=== PATIENT | male | born 1975 | race Caucasian/White ===

== ENCOUNTER 2018-12-29 14:00 | Emergency (ER) | payer SELFPAY ==
--- NOTE | 2018-12-29 14:17 | ER Document Report ---
ED Medical Screen (RME) - General Chief Complaint: Difficulty Swallowing Stated Complaint: FORIGN BODY IN THROAT Time Seen by Provider: 12/29/18 14:09 Mode of Arrival: Ambulatory TRAVEL OUTSIDE OF THE [place] IN LAST 30 DAYS: No - HPI Notes: 12/29/18 14:13 Patient is a 43 yr old male that presents to the emergency department for chief complaint of difficulty breathing x 1 hour after he ate chicken, feels like the chicken is stuck in his throat. Patient states he had a similar issue in [place] last year, he was eating steak, which became stuck in his throat, had to have dilation of esophagus to have steak removed. no hx of esophageal stricture since that time. patient reports is difficult to manage his secretions. He is speaking clearly, in full sentences. Has not tried any [id number] medications. ROS: Other than noted above, the 12 point review of systems was reviewed with the patient and were negative, all pertinent findings are included in the HPI. PHYSICAL EXAMINATION: Vital signs reviewed. GENERAL: Well-appearing, well-nourished and in no mild distress HEAD: Atraumatic, normocephalic. EYES: Pupils equal round extraocular movements intact, conjunctiva are normal. ENT: Nares patent NECK: Normal range of motion CV: tachycardia LUNGS: No respiratory distress NEUROLOGICAL: Normal speech PSYCH: anxious Patient seen and examined for rapid initial assessment. Vital signs reviewed. A comprehensive ED assessment and evaluation of the patient, analysis of test results and completion of the medical decision making process will be conducted by additional ED providers. *Note is created using voice recognition software and may contain spelling, syntax or grammatical errors. Past Medical History - Social History Chew tobacco use (# tins/day): No Frequency of alcohol use: None Drug Abuse: None Renal/ Medical History: Denies: Hx Peritoneal Dialysis Physical Exam - Vital signs Vitals: Temp Pulse Resp BP Pulse Ox 98.1 F 129 H 26 H 184/109 H 99 12/29/18 14:12/29/18 14:12/29/18 14:12/29/18 14:12/29/18 14:05 Course - Vital Signs Vital signs: Temp Pulse Resp BP Pulse Ox 98.1 F 129 H 26 H 184/109 H 99 12/29/18 14:12/29/18 14:05 12/29/18 14:05 12/29/18 14:05 12/29/18 14:05
[2018-12-29] MEDS ORDERED: NORMAL SALINE 1000 ML 1,000 ML IV ONE (14:34)
[2018-12-29] MEDS ORDERED: GLUCAGON,HUMAN RECOMB 1 MG INJ SUBCUT ONE (14:45)
--- NOTE | 2018-12-29 14:59 | ER Document Report ---
ED General - General Chief Complaint: Difficulty Swallowing Stated Complaint: FORIGN BODY IN THROAT Time Seen by Provider: 12/29/18 14:09 Mode of Arrival: Ambulatory TRAVEL OUTSIDE OF THE [place] IN LAST 30 DAYS: No - HPI Notes: Patient is a 43-year-old gentleman who presents to the emergency department for evaluation of a choking sensation. He states he was eating chicken, felt as if it got stuck in his throat. He actually tried to induce vomiting, states he got up some of the chicken, but he is continuing to have difficulty handling liquids. He states that he seems to regurgitate fluids shortly after trying them. He describes a fullness in his upper chest. He does have a history of esophageal impaction with dilation necessary last year. He states he has not been taking any reflux medications. He states he was trying diet modification. He denies any sensation of reflux. - Related Data Allergies/Adverse Reactions: No Known Allergies Allergy (Verified 12/29/18 14:55) Past Medical History - General Information source: Patient - Social History Smoking Status: Former Smoker Chew tobacco use (# tins/day): No Frequency of alcohol use: None Drug Abuse: None Family History: Reviewed & Not Pertinent Patient has suicidal ideation: No Patient has homicidal ideation: No Renal/ Medical History: Denies: Hx Peritoneal Dialysis GI Medical History: Reports: Hx Gastroesophageal Reflux Disease Review of Systems - Review of Systems Constitutional: No symptoms reported EENT: No symptoms reported Cardiovascular: No symptoms reported Respiratory: No symptoms reported Gastrointestinal: See HPI Genitourinary: No symptoms reported Musculoskeletal: No symptoms reported Skin: No symptoms reported Neurological/Psychological: No symptoms reported Physical Exam - Vital signs Vitals: Temp Pulse Resp BP Pulse Ox 98.1 F 129 H 26 H 184/109 H 99 12/29/18 14:05 12/29/18 14:05 12/29/18 14:05 12/29/18 14:05 12/29/18 14:05 - Notes Notes: This is a 43-year-old gentleman appears his stated age in no acute distress. He seems to be handling his secretions without significant difficulty. Vital signs reviewed, please refer to chart. Head is normocephalic, atraumatic. Pupils equal round, reactive to light. Neck is supple without meningismus. Heart is regular rate and rhythm. Lungs are clear to auscultation bilaterally. Abdomen is soft, nontender, normoactive bowel sounds throughout. Peripheral pulses are equal. Skin is warm and dry. Patient is awake, alert, neurological exam is nonfocal. Course - Re-evaluation Re-evalutation: 12/29/18 14:58 Patient presents emergency department for evaluation of possible esophageal food impaction. He had initial laboratory investigations and imaging as ordered through triage. I did cancel laboratory investigations. I did want to give the patient some IV fluids as his heart rate was 130 upon arrival. He did refuse this. We discussed options for treatment. He does seem relatively comfortable at this time. I did order glucagon. The patient states he is feeling somewhat improved and at this time would like to hold off. He would like to see if he can handle small sips of fluids. Awaiting results of this trial. 12/29/18 18:46 Patient reluctantly accepted the glucagon and had little to no relief. Shortly afterwards, he did agree to IV placement and IV fluid bolus. I discussed at great length our options, and was waiting for surgery consultation to see if EGD and dilation was a possibility. While here I did offer further treatment with sublingual nitroglycerin. I did speak with Dr. Blake, who unfortunately does not perform EGDs. In the meantime, the patient received a nitroglycerin and felt greatly improved. He was able to tolerate water. I strongly advised the patient that he should be on a PPI. We talked at length about foods and other ingestions that would worsen his symptoms. He does admit to drinking 8 to 10 cups of coffee daily. I strongly advised that he cut this, at least in half, before eliminating it. He no longer smokes. He only very rarely drinks alcohol. At this point I will go ahead and send the patient home on omeprazole. He does not have prescription coverage, he is told he can get this [id number]. He should have prescription coverage by January as they have just moved here. I will go ahead and put in a referral to GI, as well as [facility]. He is to return to the ED with worsening or new concerning symptoms of any sort. - Vital Signs Vital signs: Temp Pulse Resp BP Pulse Ox 97.8 F 86 26 H 149/99 H 97 12/29/18 16:59 12/29/18 16:59 12/29/18 14:05 12/29/18 16:59 12/29/18 16:59 Discharge - Discharge Clinical Impression: Esophageal obstruction due to food impaction Condition: Stable Disposition: HOME, SELF-CARE Additional Instructions: You should start taking omeprazole daily. Decrease your caffeine intake, avoid alcohol, spicy foods, nicotine. Follow-up with primary care and gastroenterology. If you develop worsening or new concerning symptoms of any sort, return immediately to the emergency department for reevaluation.
--- NOTE | 2018-12-29 14:59 | RADIOLOGY REPORT (SQ) ---
EXAM DESCRIPTION: SOFT TISSUE NECK COMPLETED DATE/TIME: 12/29/2018 2:37 pm REASON FOR STUDY: SOMETHING STUCK IN THROAT COMPARISON: None. NUMBER OF VIEWS: Two views. TECHNIQUE: AP and lateral radiographic image of the soft tissues of the neck. LIMITATIONS: None. FINDINGS: EPIGLOTTIS: Normal. Contour normal. Aryepiglottic folds normal. PREVERTEBRAL SOFT TISSUES: Normal. No soft tissue swelling. SUBGLOTTIC AREA: Normal. No narrowing. RETROPHARYNGEAL SPACE: Normal. No soft tissue masses. BONES: No significant findings. LUNG APICES: Normal. OTHER: No radiopaque foreign body. No other significant finding. IMPRESSION: NEGATIVE STUDY OF THE SOFT TISSUES OF THE NECK. TECHNICAL DOCUMENTATION: JOB ID: [id number] [employer]- All Rights Reserved Reading location - IP/workstation name: [email or web address]
--- NOTE | 2018-12-29 15:00 | RADIOLOGY REPORT (SQ) ---
EXAM DESCRIPTION: CHEST 2 VIEWS COMPLETED DATE/TIME: 12/29/2018 2:37 pm REASON FOR STUDY: dysphagia, something stuck in throat COMPARISON: None. EXAM PARAMETERS: NUMBER OF VIEWS: two views TECHNIQUE: Digital Frontal and Lateral radiographic views of the chest acquired. RADIATION DOSE: NA LIMITATIONS: none FINDINGS: LUNGS AND PLEURA: No opacities, masses or pneumothorax. No pleural effusion. MEDIASTINUM AND HILAR STRUCTURES: No masses or contour abnormalities. HEART AND VASCULAR STRUCTURES: Heart normal size. No evidence for failure. BONES: No acute findings. HARDWARE: None in the chest. OTHER: No other significant finding. IMPRESSION: NO ACUTE RADIOGRAPHIC FINDING IN THE CHEST. TECHNICAL DOCUMENTATION: JOB ID: [id number] [employer]- All Rights Reserved Reading location - IP/workstation name: [email or web address]
[2018-12-29] MEDS ORDERED: NITROGLYCERIN 0.4 MG/TAB 25 TAB/BOTTLE SL ONE (16:38)
[2018-12-29] MEDS ORDERED: MAG HYDROX/AL HYDROX/SIMETH SUSP 30 ML UDCUP PO ONE (18:23)
[2018-12-29] MEDS ORDERED: LIDOCAINE 2% VISCOUS SOLN 20 ML UDCUP PO ONE (18:23)
[2018-12-29 19:08] VITALS: BP 132/96
== END 2018-12-29 19:07 | disposition home or self-care (01) ==
LOC: ER 14:00
DX: T18.128A Food in esophagus causing other injury, initial encounter (principal); X58.XXXA Exposure to other specified factors, initial encounter; Y93.89 Activity, other specified; Z87.891 Personal history of nicotine dependence; Z98.890 Other specified postprocedural states; Z87.19 Personal history of other diseases of the digestive system
CPT/HCPCS: 71046; 70360; J1610; J3490; J7030; 96361; 96374; 99283